=== PATIENT | male | born 1970 | race African-American/Black ===

== ENCOUNTER 2021-04-03 18:27 | Emergency (ER) | payer SELFPAY ==
[2021-04-03 19:00] LABS: #Basophils 0.1 thou/uL (0.0-0.2); #Eosinphils 0.1 thou/uL (0.0-0.7); #Lymphocytes 2.5 thou/uL (1.20-3.40); #Monocytes 0.5 thou/uL (0.11-0.59); #Neutrophils 1.6 thou/uL (1.40-6.50); %Basophils 1.1 % (0.0-1.0); %Eosinophils 3.1 % (0.0-10.0); %Lymphocytes 52.4 % (21.0-51.0); %Monocytes 9.7 % (0.0-10.0); %Neutrophils 33.7 % (42.0-75.0); Hemoglobin 15.5 g/dL (14.0-18.0); Mean Corpuscular HGB CONC 30.4 g/dL (32.0-36.0); Mean Corpuscular Hemoglobin 28.2 pg (27.0-31.0); Mean Corpuscular Volume 92.7 fL (78.0-98.0); Mean Platelet Volume 8.1 fL (7.4-10.4); Platelet Count 325 thou/uL (130-400); RBC Distribution Width 14.6 % (11.5-14.5); White Blood Cell (WBC) Count 4.8 thou/uL (4.8-10.8)
[2021-04-03] MEDS ORDERED: Aspirin Chewable 81 MG TAB ONE (19:18)
[2021-04-03] MEDS ORDERED: Amlodipine 5 MG TAB ONE (19:26)
[2021-04-03 19:45] LABS: ALT (SGPT) 46 U/L (8-55); AST (SGOT) 59 U/L (5-34); Alkaline Phosphatase 74 U/L (40-110); Anion Gap 17 mmol/L (10-20); BUN (Urea Nitrogen) 8 mg/dL (8.9-20.6); Bilirubin, Total 0.8 mg/dL (0.2-1.2); Calc. Creatinine Clearance 0 mL/min (70-130); Calcium 9.5 mg/dL (7.8-10.44); Carbon Dioxide 23 mmol/L (22-29); Chloride 100 mmol/L (98-107); Globulin 3.7 g/dL (2.4-3.5); Glucose 114 mg/dL (70-105); Lipase 33 U/L (8-78); Magnesium 1.8 mg/dL (1.6-2.6); Potassium 3.4 mmol/L (3.5-5.1); Protein, Total 7.7 g/dL (6.0-8.3); Sodium 137 mmol/L (136-145)
== END 2021-04-03 20:51 | disposition home or self-care (01) ==
LOC: NAV ERS 18:27
DX: I10 Essential (primary) hypertension (principal); R07.9 Chest pain, unspecified; M25.512 Pain in left shoulder; F17.220 Nicotine dependence, chewing tobacco, uncomplicated
CPT/HCPCS: 71045; 80053; 83690; 83735; 83880; 84484; 85025; 85379; 93005; 94760

== ENCOUNTER 2021-04-24 16:07 | Emergency (ER) | payer OTHER, SELFPAY ==
[2021-04-24 17:48] LABS: Bilirubin Negative (Negative); Blood, Urine Negative (Negative); Clarity Slightly Cloudy (Clear); Glucose, Urine (Dipstick) Negative (Negative); Ketone, Urine Negative (Negative); Leukocyte Negative (Negative); Nitrite Negative (Negative); Protein, Urine (Dipstick) Negative (Neg-Trace); Urobilinogen 0.2 mg/dL (Less than 2)
[2021-04-24 17:53] LABS: Hemoglobin 14.9 g/dL (14.0-18.0); Mean Corpuscular HGB CONC 31.5 g/dL (32.0-36.0); Mean Corpuscular Hemoglobin 28.9 pg (27.0-31.0); Mean Corpuscular Volume 91.8 fL (78.0-98.0); Mean Platelet Volume 7.5 fL (7.4-10.4); Platelet Count 302 thou/uL (130-400); RBC Distribution Width 13.5 % (11.5-14.5); Red Blood Cell (RBC) Count 5.16 mill/uL (4.70-6.10); White Blood Cell (WBC) Count 4.1 thou/uL (4.8-10.8)
[2021-04-24 17:59] LABS: ALT (SGPT) 30 U/L (8-55); AST (SGOT) 47 U/L (5-34); Albumin 4.2 g/dL (3.5-5.0); Alkaline Phosphatase 67 U/L (40-110); Anion Gap 15 mmol/L (10-20); BUN (Urea Nitrogen) 6 mg/dL (8.9-20.6); Bilirubin, Total 0.7 mg/dL (0.2-1.2); Calc. Creatinine Clearance 0 mL/min (70-130); Calcium 9.7 mg/dL (7.8-10.44); Carbon Dioxide 28 mmol/L (22-29); Chloride 100 mmol/L (98-107); Globulin 3.1 g/dL (2.4-3.5); Glucose 80 mg/dL (70-105); Potassium 3.4 mmol/L (3.5-5.1); Protein, Total 7.3 g/dL (6.0-8.3); Sodium 140 mmol/L (136-145)
[2021-04-24 18:19] LABS: Neutrophil 52 % (42-75)
[2021-04-24 18:20] LABS: Eosinophils 1 % (0-10); Lymphocytes 33 % (21-51); Manual Diff?? YES; Monocytes 12 % (0-10); Platelet Morphology Comment Appears Adequate; Reactive Lymphocytes 2 % (0-10)
[2021-04-24 18:21] LABS: MDiff Complete? YES
[2021-04-24] MEDS ORDERED: Ibuprofen 200 MG TAB ONE (20:15)
[2021-04-24 20:34] LABS: Lipase 9 U/L (8-78)
== END 2021-04-24 21:02 | disposition left against medical advice (07) ==
LOC: NAV ERS 16:07
DX: S16.1XXA Strain of muscle, fascia and tendon at neck level, initial encounter (principal); S20.212A Contusion of left front wall of thorax, initial encounter; R10.9 Unspecified abdominal pain; I10 Essential (primary) hypertension; F17.220 Nicotine dependence, chewing tobacco, uncomplicated; V89.2XXA Person injured in unspecified motor-vehicle accident, traffic, initial encounter
CPT/HCPCS: 71250; 72125; 74177; 80053; 81003; 83690; 85025

== ENCOUNTER 2022-01-22 14:02 | Outpatient (CLI) | payer OTHER | END 2022-01-22 14:03 | disposition home or self-care (01) | LOC: NAV RAD 14:02 | PROVIDERS: ATTEND Family Medicine | DX: M15.9 Polyosteoarthritis, unspecified (principal) ==

== ENCOUNTER 2022-03-14 20:14 | Emergency (ER) | payer BC, SELFPAY ==
[2022-03-14] MEDS ORDERED: Acetaminophen 500 MG TAB ONE (20:26)
== END 2022-03-14 21:33 | disposition home or self-care (01) ==
LOC: NAV ERS 20:14
DX: S63.501A Unspecified sprain of right wrist, initial encounter (principal); I10 Essential (primary) hypertension; F17.220 Nicotine dependence, chewing tobacco, uncomplicated; W19.XXXA Unspecified fall, initial encounter

== ENCOUNTER 2022-03-29 22:09 | Emergency (ER) | payer BC | END 2022-03-29 23:23 | disposition home or self-care (01) | LOC: NAV ERS 22:09 | DX: S63.501A Unspecified sprain of right wrist, initial encounter (principal); I10 Essential (primary) hypertension; F17.220 Nicotine dependence, chewing tobacco, uncomplicated; X58.XXXA Exposure to other specified factors, initial encounter | CPT/HCPCS: 29125 ==